=== PATIENT | female | born 2000 | race Caucasian/White ===

== ENCOUNTER 2024-08-05 15:49 | Emergency (ER) | payer OTHER ==
[~2024-08-05] VITALS: Ht 165.1 cm; Wt 63.5 kg
[2024-08-05] MEDS ORDERED: METHOCARBAMOL500 MG PO (18:40)
[2024-08-05 19:01] VITALS: BP 137/93
== END 2024-08-05 19:02 | disposition home or self-care (01) | DRG 552 ==
LOC: ED 15:49
DX: S16.1XXA Strain of muscle, fascia and tendon at neck level, initial encounter (principal); S29.012A Strain of muscle and tendon of back wall of thorax, initial encounter; V43.52XA Car driver injured in collision with other type car in traffic accident, initial encounter